=== PATIENT | female | born 1980 | race Caucasian/White ===

== ENCOUNTER 2018-01-27 13:14 | Emergency (ER) | payer OTHER ==
[~2018-01-27] VITALS: Ht 154.9 cm; Wt 106.1 kg
[2018-01-27 13:16] VITALS: Ht 154.9 cm; Wt 106.1 kg
[2018-01-27 14:12] LABS: BASOPHIL % 0.3 % (0-2); PLATELET COUNT 220 x10^3mcL (130-400)
[2018-01-27 14:15] LABS: RED CELL DISTRIBUTION WIDTH 15.7 % (11.5-14.5)
[2018-01-27 14:22] LABS: CALCIUM 8.5 mg/dL (8.5-10.1); CARBON DIOXIDE 28.5 mmol/L (21-32); CHLORIDE SERUM 102 mmol/L (98-107); CREATININE SERUM 0.7 mg/dL (0.6-1.0); GFR1 > 60 mL/min; GLUCOSE SERUM 106 mg/dL (74-106); POTASSIUM SERUM 3.7 mmol/L (3.5-5.1); SODIUM SERUM 138 mmol/L (136-145)
[2018-01-27 14:25] LABS: ALKALINE PHOSPHATASE 50 U/L (46-116); ALT/SGPT 103 U/L (14-59); AST/SGOT 38 U/L (15-37); BILIRUBIN TOTAL 0.3 mg/dL (0.20-1.00); TOTAL PROTEIN, SERUM 7.5 g/dL (6.4-8.2)
[2018-01-27 14:29] LABS: ALBUMIN 3.3 g/dL (3.4-5.0)
[2018-01-27 15:08] VITALS: BP 157/89
== END 2018-01-27 15:08 | disposition home or self-care (01) ==
LOC: ED 13:14
PROVIDERS: Emergency Medicine
DX: R42 Dizziness and giddiness (principal); R11.0 Nausea; R51 Headache
CPT/HCPCS: J7030; J8597